=== PATIENT | female | born 1970 | race Caucasian/White ===

== ENCOUNTER 2018-05-11 08:12 | Day surgery (SDC) | payer MEDICAID ==
[2018-05-10 12:57] LABS: Basophils # (auto) 0 uL; Basophils % (auto) 0.4 % (0.0-2.0); Eosinophils # (auto) 0.2 uL; Eosinophils % (auto) 3.5 % (0.0-7.0); Hematocrit 41.8 % (36.0-46.0); Hemoglobin 14.3 g/dL (12.2-16.2); Lymphocytes # (auto) 2.3 uL; Lymphocytes % (auto) 35.6 % (10.0-50.0); Mean Corpuscular Hemoglobin 33.8 pg (28.0-32.0); Mean Corpuscular Hgb Conc. 34.3 g/dL (32.0-36.0); Mean Corpuscular Volume 98.3 fL (80.0-100.0); Monocytes # (auto) 0.5 uL; Monocytes % (auto) 7.8 % (0.0-12.0); Neutrophils # (auto) 3.3 uL; Neutrophils % (auto) 52.7 % (37.0-80.0); Nucleated Red Blood Cells % 0.1 %; Platelet Count (auto) 321 10^3/uL (140-450); Red Blood Cells 4.25 10^6/uL (4.0-5.20); Red Cell Distribution Width 12.9 % (11.8-14.3); White Blood Cell 6.3 10^3/uL (4.4-10.8)
[2018-05-10 13:08] LABS: INR 0.88 (0.9-1.15); Partial Thromboplastin Time 28.7 sec (23.78-33.04); Prothrombin Time 9.5 sec (9.27-12.13)
[2018-05-10 13:25] LABS: Albumin 4.2 g/dL (3.4-5.0); BUN/Creatinine Ratio 15.7; Bilirubin, Total 0.3 mg/dL (0.2-1.0); Calcium 9.1 mg/dL (8.5-10.1); Potassium 4.2 mmol/L (3.5-5.1); Total Protein 8.3 g/dL (6.4-8.2)
[~2018-05-11] VITALS: Ht 160 cm; Wt 95.3 kg
[~2018-05-11 08:12] MED LIST: ADAL10IN SC; AMIT150T PO; AMLO10TA12 PO; ASPI81TA27 PO; AZAT50TA22 PO; CHOL1TAB42 PO; CYAN25004 SL; DICY10CA12 PO; DONE5TAB31 PO; DULO60CA PO; FAM20T PO; GEMF600T7 PO; HYDR-531 PO; LAMO150T26 PO; LOSA25TA40 PO; LURA40TA PO; MESA400C OR; MULT1CAP25 PO; MULTTAB61 PO; PANT40TA2 PO; SIMV-8 PO; SUMA100T15 PO; TIZA4CAP PO
[2018-05-11] MEDS ORDERED: BUPIVACAINE 0.75% INJ 10ML MPV SDV IJ ONE (09:34)
[2018-05-11] MEDS ORDERED: ceFAZolin 1GM/50ML 50 ML IV ONE (10:03)
[2018-05-11] MEDS ORDERED: MIDAZOLAM HCL 1MG/1ML-2 ML VIAL ONE (10:07)
[2018-05-11] MEDS ORDERED: fentaNYL CITRATE 100 MCG/2 ML VL ONE ×2 (10:07)
[2018-05-11] MEDS ORDERED: PROPOFOL 10 MG/ML 20 ML IV ONE (10:07)
[2018-05-11] MEDS ORDERED: KETOROLAC TROMETH 30 MG/ML 1ML VIAL ONE (10:50)
[2018-05-11] MEDS: HYDROmorphone HCL 2 MG/ML VL IV PRN ×3 (10:51→11:11)
[2018-05-11] MEDS ORDERED: HYDROmorphone HCL 2 MG/ML VL ONE (10:51)
[2018-05-11] MEDS ORDERED: hydrALAZINE HCL 20 MG/ML VL IV PRN (11:00)
[2018-05-11] MEDS ORDERED: ONDANSETRON HCL 4 MG/2 ML VIAL IV ONE (11:00)
[2018-05-11] MEDS ORDERED: KETOROLAC TROMETH 30 MG/ML 1ML VIAL IV ONE (11:00)
[2018-05-11] MEDS ORDERED: ePHEDrine SULFATE 50 MG/ML AMP IV PRN (11:00)
[2018-05-11 11:30] VITALS: BP 140/93
== END 2018-05-11 11:46 | disposition home or self-care (01) ==
LOC: SUR 08:12
PROVIDERS: ATTEND Podiatrist Foot & Ankle Surgery
DX: M20.12 Hallux valgus (acquired), left foot (principal); M21.612 Bunion of left foot; E66.9 Obesity, unspecified; F17.210 Nicotine dependence, cigarettes, uncomplicated; I10 Essential (primary) hypertension; K50.90 Crohn's disease, unspecified, without complications; E78.5 Hyperlipidemia, unspecified; F31.9 Bipolar disorder, unspecified; K21.9 Gastro-esophageal reflux disease without esophagitis; Z68.37 Body mass index [BMI] 37.0-37.9, adult; Z90.49 Acquired absence of other specified parts of digestive tract; Z90.12 Acquired absence of left breast and nipple; Z98.890 Other specified postprocedural states; Z79.899 Other long term (current) drug therapy; Z90.721 Acquired absence of ovaries, unilateral
CPT/HCPCS: 28296; J1170; J3010; 36415; 73620; 80053; 84702; 85025; 85610; 85730; C1713; C1769; J0690; J1885; J2250; J2704; J3490

== ENCOUNTER → 2018-11-23 | Day surgery (SDC) | payer MEDICAID ==
[2018-11-22 11:03] LABS: Basophils # (auto) 0 uL; Basophils % (auto) 0.5 % (0.0-2.0); Eosinophils # (auto) 0.3 uL; Eosinophils % (auto) 4.3 % (0.0-7.0); Hematocrit 40.1 % (36.0-46.0); Hemoglobin 13.7 g/dL (12.2-16.2); Lymphocytes # (auto) 2.5 uL; Lymphocytes % (auto) 31.6 % (10.0-50.0); Mean Corpuscular Hemoglobin 33.2 pg (28.0-32.0); Mean Corpuscular Hgb Conc. 34.1 g/dL (32.0-36.0); Mean Corpuscular Volume 97.4 fL (80.0-100.0); Monocytes # (auto) 0.6 uL; Monocytes % (auto) 8.3 % (0.0-12.0); Neutrophils # (auto) 4.3 uL; Neutrophils % (auto) 55.3 % (37.0-80.0); Nucleated Red Blood Cells % 0.1 %; Platelet Count (auto) 319 10^3/uL (140-450); Red Blood Cells 4.12 10^6/uL (4.0-5.20); Red Cell Distribution Width 13.2 % (11.8-14.3); Urine Bacteria FEW /hpf (None Seen); Urine Blood Negative /uL (Negative); Urine Mucus FEW (None Seen); Urine Specific Gravity 1.026 (1.001-1.035); Urine WBC 7 /hpf (0 - 5); White Blood Cell 7.8 10^3/uL (4.4-10.8)
[2018-11-22 11:22] LABS: INR 0.89 (0.9-1.15); Partial Thromboplastin Time 29.2 sec (23.78-33.04); Prothrombin Time 9.6 sec (9.27-12.13)
[2018-11-22 11:40] LABS: Albumin 3.6 g/dL (3.4-5.0); BUN/Creatinine Ratio 9.7; Bilirubin, Total 0.3 mg/dL (0.2-1.0); Total Protein 7.3 g/dL (6.4-8.2)
[~2018-11-23] VITALS: Ht 160 cm; Wt 97.5 kg
[~2018-11-23] MED LIST changes: -ADAL10IN SC; +BUPIVACAINE 0.75% INJ 10ML MPV SDV IJ ONE; +MIDAZOLAM HCL 1MG/1ML-2 ML VIAL ONE; -MULT1CAP25 PO; -MULTTAB61 PO; +ONDANSETRON HCL 4 MG/2 ML VIAL IV ONE; +PROPOFOL 10 MG/ML 20 ML IV ONE; +ceFAZolin 1GM/50ML 50 ML IV ONE; +ePHEDrine SULFATE 50 MG/ML AMP IV PRN; +fentaNYL CITRATE 100 MCG/2 ML VL IV ONE; +fentaNYL CITRATE 100 MCG/2 ML VL ONE; +hydrALAZINE HCL 20 MG/ML VL IV PRN
[2018-11-23 10:00] VITALS: BP 125/84
== END | disposition home or self-care (01) ==
LOC: SUR 07:01
PROVIDERS: ATTEND Podiatrist Foot & Ankle Surgery
DX: Z47.2 Encounter for removal of internal fixation device (principal); L90.5 Scar conditions and fibrosis of skin; E66.9 Obesity, unspecified; Z90.49 Acquired absence of other specified parts of digestive tract; Z98.890 Other specified postprocedural states; Z90.89 Acquired absence of other organs; Z68.38 Body mass index [BMI] 38.0-38.9, adult
CPT/HCPCS: 14040; 20680; J3010; J7030; Q4100; 36415; 80053; 81001; 84702; 85025; 85610; 85730; J0690; J2250; J2704; J3490